=== PATIENT | male | born 1955 | race Caucasian/White ===

== ENCOUNTER 2022-05-22 08:21 | Outpatient (CLI) | payer MEDICARE, OTHER, SELFPAY | END 2022-05-22 08:22 | disposition home or self-care (01) | PROVIDERS: Visit Provider Internal Medicine Gastroenterology | DX: Z53.9 Procedure and treatment not carried out, unspecified reason (principal) ==

== ENCOUNTER 2022-05-22 08:54 | Outpatient (CLI) | payer OTHER, SELFPAY ==
--- NOTE | 2022-05-22 09:45 | W.ANESCHARGE ---
Anesthesia Charges Start Date/Time Anesthesia Start Date: 05/22/22 Anesthesia Start Time: 09:20 Stop Date/Time Anesthesia Stop Date: 05/22/22 Anesthesia Stop Time: 09:45 Summary Emergency: No
--- NOTE | 2022-05-22 10:28 | W.ANESCHARGE ---
Anesthesia Charges Start Date/Time Anesthesia Start Date: 05/22/22 Anesthesia Start Time: 09:20 Stop Date/Time Anesthesia Stop Date: 05/22/22 Anesthesia Stop Time: 09:45 Summary Emergency: No
== END 2022-05-22 08:55 | disposition home or self-care (01) ==
PROVIDERS: Visit Provider Internal Medicine Gastroenterology
DX: R13.10 Dysphagia, unspecified (principal); K44.9 Diaphragmatic hernia without obstruction or gangrene; K22.2 Esophageal obstruction
CPT/HCPCS: 00731; 43248